=== PATIENT | female | born 1955 | race Caucasian/White ===

== ENCOUNTER 2018-09-05 07:25 | Day surgery (SDC) | payer OTHER ==
[2018-09-05 07:56] LABS: Absolute Lymphocytes (CBC) 2.5 K/uL (0.7-4.9); Absolute Monocytes 0.8 K/uL (0.1-1.3); Absolute Neutrophil 5.4 K/uL (1.8-8.0); Basophils % 1.1 % (0-1.3); Eosinophils % 2.3 % (0-4.4); Hematocrit 43.3 % (36.0-45.0); Lymphocytes % 27.8 % (15.3-44.8); MPV 8.4 fL (7.6-11.3); Monocytes % 8.5 % (3.3-12.3); RBC Red Blood Cell Count 4.73 M/uL (3.86-4.86)
[2018-09-05 07:59] LABS: Urine Appearance CLEAR; Urine Bilirubin NEGATIVE (NEG); Urine Blood 2+ (NEG); Urine Color YELLOW; Urine Glucose NEGATIVE (NEG); Urine Protein NEGATIVE (NEG); Urine Specific Gravity 1.015 (1.005-1.030); Urine Urobilinogen 0.2 mg/dL (0.2-1.0); Urine pH 5.5 (5.0-7.0)
[2018-09-05 08:09] LABS: Potassium 4.1 mmol/L (3.5-5.1)
[2018-09-05] MEDS ORDERED: PROPOFOL 200 MG/20 ML VIAL IV ONE (08:09)
[2018-09-05] MEDS ORDERED: GLYCOPYRROLATE 0.2 MG/ML SYR ONE (08:10)
[2018-09-05] MEDS ORDERED: Ringers Lactate 1,000 ML IV ONE ×2 (08:10→09:45)
[2018-09-05] MEDS ORDERED: SCOPOLAMINE HYDROBROMIDE PATCH TD ONE (08:10)
[2018-09-05] MEDS ORDERED: LIDOCAINE 2% MPF 5 ML VIAL ONE (08:11)
[2018-09-05] MEDS ORDERED: FENTANYL CITR 250 MCG/5 ML ONE (08:12)
[2018-09-05] MEDS ORDERED: NEOSTIGMINE 1 MG/ML -5 ML SYRINGE ONE (08:13)
[2018-09-05] MEDS ORDERED: ROCURONIUM 50 MG/5 ML VIAL IV ONE (08:13)
[2018-09-05] MEDS ORDERED: ONDANSETRON 4 MG/2 ML VIAL ONE ×2 (08:13→10:02)
[2018-09-05 08:14] LABS: Urine Microscopic Reflex ORDER UMIC
[2018-09-05] MEDS ORDERED: MIDAZOLAM HCL 2 MG/2 ML INJ ONE (08:15)
[2018-09-05 08:32] LABS: Urine Bacteria 20-50 /HPF (<20); Urine Culture Reflex Order REFLEXED; Urine RBC <5 /HPF (NONE SEEN)
[2018-09-05] MEDS ORDERED: DEXAMETHASONE 10 MG/ML VIAL ONE (09:23)
[2018-09-05] MEDS ORDERED: KETOROLAC 30 MG/ML INJ ONE (09:59)
[2018-09-05] MEDS ORDERED: PROMETHAZINE 25 MG/ML VIAL ONE (11:28)
[2018-09-05] MEDS ORDERED: IBUPROFEN 400 MG TAB ONE (12:28)
[2018-09-05] MEDS ORDERED: IBUPROFEN 200 MG TAB PO ONE (12:28)
--- NOTE | 2018-09-06 03:29 | OP ---
Date of Procedure: 09/05/2018 Surgeon: Marifer Ashton MD Waistline Joiner Overlock: Esther Crespo. Preoperative Diagnoses: Complex left adnexal mass and acute worsening of pelvic pain, possible torsi on. Postoperative Diagnoses: Left complex adnexal mass, pelvic pain, and dense intraabdominal adhesions. Procedures Performed: Diagnostic laparoscopy, pelvic washings, extensive lysis of adhesions which to ok more than 50% of the case, and bilateral salpingo-oophorectomy. Anesthesia: General endotracheal. Estimated Blood Loss: Less than 50. Specimens: Bilateral tubes and ovaries and pelvic washings. Complications: No complications. Drains: No drains. Condition: Stable. Indications: The patient is a 63-year-old female who presented with right lower quadrant and pelvic pain. On investigating with a transvaginal ultrasound, we found a 5.8-cm complex adnexal mass. Foll owup CAT scan and CA-[address] showed a mass that is consistent with the ultrasound meeta acteristics, complex in nature and cystic, about 6 cm. No free fluid was seen. No other intraabdomi nal masses or omental masses. No lymphadenopathy was noted, and it was unremarkable. CA-125 was 4. The patient was supposed to follow up with us for routine followup, and referral was being considere d to a [employer] oncologist. However, yesterday, she called with pain that was acutely worse when she was at work, mostly in the lower pelvic area. She called her GI physician when she had a GI workup recen tly. She was found to have colonic ulcers on the right side. However, no diverticulosis on the CT. No evidence of diverticulitis either. So, she was directed to call us. I had seen the patient last evening and found that her pain was acute, and she had mild peritoneal signs. On examination, left adnexa was most tender, suspicion for torsion. Discussed with the patient the options of pain medica tion for pain control and referral to a [employer] oncologist versus taking care of the pain with a diagnost ic laparoscopy, possible BSO. After the diagnosis if there is malignancy, then she would go for a se cond surgery. The patient opted for option #2 due to her pain. So, consented the patient for diagno stic laparoscopy, pelvic washings, and bilateral salpingo-oophorectomy. Description Of Procedure: The patient was taken to the OR this morning. After informed consent was re-verified, she was placed on the table in a supine fashion. General anesthesia was given. She was placed in a dorsal lithotomy position using Josh stirrups. Pelvic examination was performed. Uter us was extremely small and deviated to the right. Left adnexal mass was palpable and was mobile. Abdomen, vulva, vagina, and perineum were prepped and draped in a sterile fashion. Ltaham was placed to drain the bladder. Cervix was exposed with a speculum and dilated to 14-Telugu. However, I wante d to place a VCare after the laparoscopy was started. So, this was left in place. Latham was connect ed to drainage bag, and this area was draped. Gloves were changed. A 1-cm infraumbilical incision was made with a scalpel. Using the open laparoscopy technique, fascia was incised, tagged with 0 Vicryl sutures, peritoneum entered directly, and retractors placed. Ender on introduced. Site of entry checked and unremarkable. Upper abdominal surfaces were checked as wel l, unremarkable. No omental masses. Peritoneum appeared to be unremarkable to palpation. The patie nt was placed in Trendelenburg position. There were omental adhesions on the anterior abdominal wall from her 2 prior C-sections and her open appendectomy. There were dense adhesions in the right lowe r quadrant with small bowel attached to the right lower quadrant as well. Then, there were adhesions of the omentum to the bladder, uterine adhesions to the anterior abdominal wall, and adhesions of th e sigmoid colon to the left lateral wall at the level of the IP ligament. This was below the level of the natural attachment of the sigmoid. A 5-mm suprapubic and a 5-mm left lower quadrant port were placed. Then, using a 5-mm LigaSure with a curved tip, windows were made and omental adhesions were all taken down in the suprapubic area. On ce optimal dissection was performed to place a port, a 5 port was placed from here. Then, with the a ssistance of the port, traction, and countertraction, the omental adhesions were taken down from the left lateral wall to the midline and to the level of the bladder. All the adhesions were taken down with the help of making windows and taking them down with cold scissors. On the right side, the adhe sions were taken down with the help of cold scissors as well; and systematically, they were . Gradually coming down, there were adhesions of the small bowel to the right lower quadrant and the infundibulopelvic ligament to distal part of the left tube. All these were systematically taken newton n the sharp scissors; and once the entire IP ligament was well visualized, the crossing of the ureter at the division of the iliac vessels was identified. The dissection was stopped here on the left si de. The ovary had adhesions to the lateral wall, and these were taken down. Then, I the c olon from the lateral wall by opening up the infundibulopelvic ligament. The proximal part of the tu be that was attached to the uterus was adhered to the round ligament as well as the lateral wall. A plane was developed in the broad ligament between the round ligament and the tube. This dissection w as carried on to the lateral wall. Then, the left broad ligament was opened up, and dissection was c arried on the anterior leaf to the level of the infundibulopelvic ligament. Once this was all cleane d up, the posterior part of the window for the peritoneum behind the IP was also opened up, and the p edicle was taken with the help of the LigaSure and after 3 coags. Once the IP ligament was cut, then I was able to open up the tube. The proximal part of the tube was dissected first. Then, the perit oneum was dissected to open up between the utero-ovarian ligament and the round ligament. Once this window was created, utero-ovarian ligament was taken down. Dissection was carried in the posterior p eritoneum covering the ovary coming up to the ovarian attachment. Then, the rest of the attachment o f the ovary to the lateral wall was taken down with the help of the LigaSure. On the safe side, the tube was left attached to the ovary when this dissection was performed. On the opposite side, window was created laterally by taking down the tube and the broad ligament. T he proximal part of the tube was also removed separately. Then, the IP ligament was taken down with the LigaSure and the rest of the attachment cut with the same device. After all the specimens were r etrieved, all the small specimens were removed through the suprapubic trocar. Rest of them were plac ed in the posterior cul-de-sac. A 5-mm scope was switched, and then a 10-cm bag was introduced throu gh the suprapubic port. All the specimens were placed in this and closed. The sites of the trocars were visualized as I was removing them. There is some bleeding from the suprapubic trocar site, and this was cauterized with the help of the LigaSure once all the incisions were hemostatic. The bag wa s opened up after removing the Rd; and using a 20-cc syringe and an 18-gauge needle, the cyst was aspirated; 40 cc of straw-colored fluid was removed. Then, the specimen was decompressed enough to come out through the small incision without any spillage. Gloves were changed. The port site was cl osed with the help of the tagged sutures, tied on both sides. There was excellent closure. The subc utaneous tissues were thoroughly irrigated and suctioned and closed with a simple 0 Vicryl stitch, an d 4-0 interrupted Monocryls were placed in all incisions for closure. Latham was removed. I did not insert a VCare manipulator in. Instrument, needle, and sponge counts were done at this point; and th ey were correct. She was recovered from anesthesia and taken to PACU in a stable condition. JOSE/COTY Voice ID: [id number] Report ID: [id number]
== END 2018-09-05 14:58 | disposition home or self-care (01) ==
LOC: OR 07:25
PROVIDERS: ATTEND Obstetrics & Gynecology
PROC: 0UT24ZZ Resection of Bilateral Ovaries, Percutaneous Endoscopic Approach (ICD-10-PCS; 2018-09-05)
PROC: 0UT74ZZ Resection of Bilateral Fallopian Tubes, Percutaneous Endoscopic Approach (ICD-10-PCS; 2018-09-05)
PROC: 0DNW4ZZ Release Peritoneum, Percutaneous Endoscopic Approach (ICD-10-PCS; principal; 2018-09-05 09:00)
DX: N83.292 Other ovarian cyst, left side (principal); N83.8 Other noninflammatory disorders of ovary, fallopian tube and broad ligament; N73.6 Female pelvic peritoneal adhesions (postinfective); K21.0 Gastro-esophageal reflux disease with esophagitis; E78.00 Pure hypercholesterolemia, unspecified; F17.210 Nicotine dependence, cigarettes, uncomplicated; Z80.0 Family history of malignant neoplasm of digestive organs; Z80.41 Family history of malignant neoplasm of ovary; Z80.1 Family history of malignant neoplasm of trachea, bronchus and lung; Z80.3 Family history of malignant neoplasm of breast; Z82.49 Family history of ischemic heart disease and other diseases of the circulatory system
CPT/HCPCS: 36415; 80048; 81003; 81015; 85025; 86850; 86900; 86901; 87086; 87088; 88108; 88305; J1100; J2250; J2405; J2550; J2704; J2710; J3010